=== PATIENT | male | born 1935 | race Caucasian/White ===

== ENCOUNTER → 2017-07-28 | Outpatient (CLI) | payer MEDICARE, OTHER ==
[~2017-07-28] MED LIST: ASPI-891 PO; CARV6.2534 PO; CLOP75 PO; DIGO125T71 PO; ISOS30TA29 PO; NITR0.3T10 SL; ROSU5TAB PO; VALS160T2 PO
== END | disposition home or self-care (01) ==
LOC: RADPV 10:12
PROVIDERS: ATTEND Internal Medicine Cardiovascular Disease
DX: I08.0 Rheumatic disorders of both mitral and aortic valves (principal); I25.5 Ischemic cardiomyopathy; I25.10 Atherosclerotic heart disease of native coronary artery without angina pectoris
CPT/HCPCS: 93306